=== PATIENT | female | born 1945 | race Hispanic/Latino ===

== ENCOUNTER 2019-11-28 22:59 | Inpatient (IN) ==
--- NOTE | 2019-11-28 23:27 | PROVIDER DOCUMENTATION ---
This chart was entered by Yuliya Amaya Scribe, acting as scribe for German Samson MD. HPI-General Adult - General Stated Complaint: BP ISSUES Time Seen by Provider: 11/28/19 23:17 Source: patient, family Allergies/Adverse Reactions: Patient Allergies Allergy/AdvReac Type Severity Reaction Status Date / Time Penicillins Allergy SWELLING Verified 11/28/19 23:25 Home Medications: Home Medication List Medication Instructions Recorded Confirmed Last Taken Type Alprazolam [Xanax Xr] 0.5 mg PO PRN PRN 10/27/19 11/29/19 Unknown History Aspirin [Aspir-Low] 81 mg PO DAILY 10/27/19 11/29/19 Unknown History Glipizide [Glucotrol] 10 mg PO DAILY 10/27/19 11/29/19 Unknown History Hydrochlorothiazide 25 mg PO DAILY 10/27/19 11/29/19 Unknown History Isosorbide Mononitrate [Isosorbide 30 mg PO DAILY 10/27/19 11/29/19 Unknown History Mononitrate ER] Levothyroxine Sodium 88 mcg PO DAILY 10/27/19 11/29/19 Unknown History Metformin [Glucophage] 500 mg PO BID CC 10/27/19 11/29/19 Unknown History Metoprolol Tartrate 50 mg PO DAILY 10/27/19 11/29/19 Unknown History Marble-3 Fatty Acids/Fish Oil 1 ea PO DAILY 10/27/19 11/29/19 Unknown History [Marble 3 1,000 mg Softgel] Omeprazole 40 mg PO DAILY 10/27/19 11/29/19 Unknown History - History of Present Illness -Gen Adult Nature of Presenting Problems: pt is a 74 yohf presenting w/daughter to er w/cc chest heaviness, purdy pressure like in nature, and 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 pt has hx of dm, takes glipizide, and htn, takes norvasq. pt pcp is Dr. Renee in [place]. Location of Pain/Injury: reports: head, chest Quality of Pain: reports: pressure, other (chest heaviness) Severity: reports: mild Onset/Duration: reports: 1/2 hour ago Timing: reports: still present Context/Activities at Onset: reports: none Modifying Factors: improves with: nothing Associated Symptoms: reports: chest pain, headaches, other (htn). denies: dizz iness Review of Systems - Adult - REVIEW OF SYSTEMS - ADULT Constitutional: reports: no symptoms reported. denies: fever, fatique, night sweats Eyes: reports: no symptoms reported Ears, Nose, Mouth & Throat: reports: no symptoms reported Cardiovascular: reports: see HPI, chest pain, other (HTN 185/97). denies: heart murmur, irregular heart rate, orthopnea Respiratory: reports: no symptoms reported. denies: hemoptysis, pleurisy, shortness of breath Gastrointestinal: reports: no symptoms reported. denies: diarrhea, nausea, vomiting Genitourinary: reports: no symptoms reported Musculoskeletal: reports: no symptoms reported Integumentary: reports: no symptoms reported Neurological: reports: see HPI, headache/migraines. denies: dizziness/vertigo, loss of balance, numbness Psychiatric: reports: no symptoms reported Endocrine: reports: no symptoms reported Hematologic/Lymphatic: reports: no symptoms reported Allergic/Immunologic: reports: no symptoms reported All Other Systems: Reviewed and Negative Past History - Adult - PAST MEDICAL HISTORY-ADULT Review of Records: reports: Nursing Assessment Review, Medications Reviewed, Social history reviewed & non-contributory. Major Childhood Illnesses: reports: denies history Cardiovascular: reports: HTN, hyperlipidemia Respiratory: reports: denies history Gastrointestinal: reports: denies history Obstetrical/Gynecological: reports: denies history Genitourinary: reports: denies history Musculoskeletal: reports: denies history Neurological: reports: denies history Endocrine/Immune: reports: Diabetes, thyroid disorder Other Conditions: reports: denies history - PRIOR SURGERIES/PROCEDURES Surgical/Procedure History: reports: orthopedic (extremity) - IMMUNIZATION STATUS Childhood Immunizations: See Nurse Assessment Flu Vaccine: See Nurse Assessment - FAMILY HISTORY Family History: reviewed, not pertinent - SOCIAL HISTORY Smoking: non-smoker Substance Use: none/never Physical Exam-General - PHYSICAL EXAM-ADULT Initial Vital Signs Reviewed: Yes - CONSTITUTIONAL General Appearance: appears well, alert, no apparent distress - EYES Eyes: PERRL/EOMI, pink conjunctivae - HEAD, EARS, NOSE, MOUTH & THROAT HENMT: normocephalic/atraumatic, moist mucous membranes - NECK Neck: non-tender, full range of motion, supple, normal inspection - RESPIRATORY Respiratory: chest non-tender, lungs clear, normal breath sounds - CARDIOVASCULAR Cardiovascular: normal peripheral pulses, regular rate, rhythm, no edema, no ga llop, no JVD, no murmur. negative: bradycardia, tachycardia, irregularly irregular - GASTROINTESTINAL (ABDOMEN) Abdominal Exam: normal bowel sounds, non tender, soft - MUSCULOSKELETAL Back Exam: normal inspection Extremity: normal range of motion, non-tender, normal gait, normal inspection - SKIN Integumentary: normal color, normal turgor, warm/dry - NEUROLOGIC Neurologic: brass polisher II-XII nml as tested, grossly normal, no motor/sensory deficits - PSYCHIATRIC Psych/Mental Status: normal mood/affect, normal thought content, normal thought process, oriented x 3 Progress - PLAN OF CARE/RESULTS Result Diagrams: 11/29/19 00:12 11/29/19 00:12 - CONSULTS/PCP/HOSPITALIST Notification #1 *Consult/PCP/Hospitalist*: DR. ARANA Time Discussed: 01:50 Consult Disposition: Admit Departure - Departure Date of Disposition Decision: 11/29/19 Time of Disposition Decision: 01:52 DIAGNOSIS: Chest pain Qualifiers: Chest pain type: unspecified Qualified Code(s): R07.9 - Chest pain, unspecified Diabetes Qualifiers: Diabetes mellitus type: type 2 Diabetes mellitus custodial insulin use: unspecified custodial insulin use status Diabetes mellitus complication status: without complication Qualified Code(s): E11.9 - Type 2 diabetes mellitus without complications Disposition: ADMITTED INPATIENT 09 Certified Medical Emergency: Emergent Condition: Stable Referrals and Follow-Ups: None,PCP [NON-STAFF PROVIDER] - - Critical Care Note This patient required my direct & personal management of CC.: No Attestation - Physician/ DALY Attestation Patient care was provided by Advanced Practice Provider:: No The physician spent face to face time with patient:: Yes Advanced Practice Provider documentation review:: Supervising physician onsite and consulted in the evaluation and care of this patient. The physician did have a face to face encounter with the patient. This chart was documented by the indicated scribe, (Yuliya Amaya Scribe) and accurately reflects the services I performed and decisions made by me, Mila Samson MD, as attested by the provider's signature.
[2019-11-28] MEDS ORDERED: ASPIRIN PO ONE (23:57)
[2019-11-29 00:42] LABS: INR 0.91; PROTIME 12.7 Seconds (11.0-16.0); PTT 30.5 Seconds (22.3-41.8)
[2019-11-29 00:46] LABS: BASO# 0.03 X1000 (0.0-0.2); BASO% 0.6 % (0.0-0.8); EOS% 1.9 % (0.0-10.0); HEMATOCRIT 38.8 % (37.0-47.0); HEMOGLOBIN 12.5 g/dL (12.0-16.0); IMM GRAN# 0.01 X1000 (0.0-0.04); IMM GRAN% 0.2 % (0.0-0.5); LYMPH# 1.97 X1000 (1.2-3.4); LYMPH% 37.5 % (20.5-51.1); MCH 28.4 PG (27-31); MCHC 32.2 g/dL (33-37); MCV 88.2 FL (81-99); MONO# 0.66 X1000 (0.11-0.59); MONO% 12.5 % (1.7-9.3); MPV 11.7 FL (7.4-10.4); NEUT# 2.49 X1000 (1.4-6.5); NEUT% 47.3 % (42.2-75.2); PLT 142 X1000 (130-400); RDW 13.6 % (11.5-14.5); WBC 5.26 X1000 (4.8-10.8)
[2019-11-29 00:50] LABS: AGAP 15; ALBUMIN 4.1 g/dL (3.5-5.0); ALKALINE PHOSPHATASE 224 U/L (32-104); BUN 16 mg/dL (8-22); CALCIUM 9.1 mg/dL (8.8-10.2); CHLORIDE 97 mmol/L (98-107); CK PROFILE 112 U/L (24-173); COSMO 281; CREATININE 0.5 mg/dL (0.5-0.9); ESTIMATED GFR > 60; GLUCOSE 275 mg/dL (70-104); GOT 56 U/L (10-30); GPT 48 U/L (10-36); POTASSIUM 3.5 mmol/L (3.5-5.1); SODIUM 135 mmol/L (136-145); TCO2 23 mmol/L (25-35); TOTAL PROTEIN 6.5 g/dL (6.3-8.3)
[2019-11-29] MEDS ORDERED: MORPHINE IV PRN (02:00)
[2019-11-29] MEDS ORDERED: HUMULIN R (PARKWAY) SUBQ ONE (02:03)
--- NOTE | 2019-11-29 06:21 | EKG Report ---
Test Performed on : 11/28/2019 11:33:09 PM Test Reason : cp Blood Pressure : / mmHG Vent. Rate : 070 BPM Atrial Rate : 070 BPM P-R Int : 128 ms QRS Dur : 090 ms QT Int : 402 ms P-R-T Axes : 036 014 014 degrees QTc Int : 434 ms Normal sinus rhythm. Nonspecific T wave abnormality Abnormal ECG When compared with ECG of 28-NOV-2019 23:32, (Unconfirmed) Nonspecific T wave abnormality, improved in Lateral leads Unconfirmed Result
--- NOTE | 2019-11-29 07:30 | Diag Imaging Result Doc PS360 ---
EXAM: CHEST-1 VIEW 11/29/2019 HISTORY: cp TECHNIQUE: Erect AP portable at 1242 COMMENT: There is no evidence of acute cardiac or pulmonary disease. There is an azygos lobe. There are no previous studies. IMPRESSION: No acute disease. Electronically signed by Zack Gomez 11/29/2019 7:28 AM
[2019-11-29] MEDS ORDERED: XANAX PO PRN (09:41)
[2019-11-29 10:00] LABS: HEMOGLOBIN A1C 9.1 % (4.8-6.0)
--- NOTE | 2019-11-29 10:50 | HISTORY AND PHYSICAL ---
CHIEF COMPLAINT: Chest pain. HISTORY OF PRESENTING ILLNESS: This is a 74-year-old female who presents to [facility] ER. She is unable to speak [place], so I used the contract mail carrier line to obtain her history. She states that a couple of weeks ago, she was seen at [facility] because she was having some swelling in her tongue after starting a blood pressure medicine, and she did not know the name of that medication, but it sounds like it was an GIFTY inhibitor as she was taken off that medication and told not to take it anymore due to her tongue swelling, and was started on some different medications for her blood pressure. She has been keeping a close monitor on her blood pressure and last night began having some chest heaviness and palpitations. No radiating of the pain. States that she noticed an elevation in her blood pressure, so her daughter brought her to the emergency room here for further evaluation and treatment. Her workup has shown cardiac enzymes x3 sets to be negative. Chest x-ray showed no acute disease. EKG showed a normal sinus rhythm at 70, but she was admitted for further evaluation and treatment. PAST MEDICAL HISTORY: Diabetes type 2, hypertension, hyperlipidemia, hypothyroidism, anxiety, and arthritis. PAST SURGICAL HISTORY: Cholecystectomy, hysterectomy, and a right knee surgery. FAMILY HISTORY: Reviewed and noncontributory. SOCIAL HISTORY: She lives with family. Denies any tobacco, alcohol or illicit drug use. ALLERGIES: Penicillin. HOME MEDICATIONS: We are going to hold her Glucotrol 10 mg p.o. daily and Glucophage 500 mg p.o. b.i.d. We will continue her Xanax XR 0.5 mg p.o. at bedtime p.r.n., aspirin 81 mg p.o. daily, hydrochlorothiazide 25 mg p.o. daily, Lantus SoloSTAR 75 units subcutaneous at bedtime, isosorbide 30 mg p.o. daily, levothyroxine 88 mcg p.o. daily, meloxicam 15 mg p.o. daily, metoprolol 50 mg p.o. daily, omega-3 1000 mg soft gel p.o. daily, and omeprazole 40 mg p.o. daily. LABORATORY DATA: Showed a white blood cell count of 5.26, hemoglobin 12.5, hematocrit 38.8, platelets 142,000. PT and INR of 12.7 and 0.91. Sodium of 135, potassium 3.5, chloride 97, CO2 23, BUN of 16, creatinine 0.5, glucose 275. Hemoglobin A1c of 9.1. AST of 56, ALT 48, alkaline phosphatase 224. Cardiac enzymes x3 sets were negative. Chest x-ray showed no acute disease. EKG showed normal sinus rhythm at 70. REVIEW OF SYSTEMS: She denied any fever, chills, blurred vision, dizziness. She did have a headache, chest heaviness, palpitations. Denied any radiating of symptoms. Denied any abdominal pain, constipation, diarrhea, burning or hurting with urination. PHYSICAL EXAMINATION: VITAL SIGNS: On arrival, she had a temperature of 98 degrees, pulse 73, respirations 18, blood pressure 170/86, saturating 95% on room air. GENERAL: This is a 74-year-old female who answers questions appropriately through the contract mail carrier line. HEENT: Normocephalic, atraumatic. Normal ENT inspection. Oropharynx and nares are clear. Eyes: Pupils are equal, round, and reactive to light and accommodation. Extraocular movements are intact. NECK: Normal inspection. Normal range of motion. LUNGS: Clear to auscultation bilaterally with equal lung expansion and chest wall movement. HEART: Regular rate and rhythm. No murmurs, rubs, or gallops. ABDOMEN: Soft, nontender, nondistended. Bowel sounds are present x4 quadrants. MUSCULOSKELETAL: She had 5 out of 5 strength x4 extremities. NEUROLOGICAL: The cranial nerves 2-12 appear grossly intact. ASSESSMENT: 1. Chest pain. 2. Hypertension. 3. Diabetes type 2 uncontrolled with hyperglycemia. 4. Hypothyroidism. PLAN: She was admitted to the medical unit, placed on a diabetic diet, pattern blood sugars with sliding scale insulin. We will schedule her for a myocardial perfusion scan in the a.m. We will continue her home medications as previously identified. We will check a TSH, free T4, CBC, BMP in the a.m. Further orders after seen by attending. Dictated by NATI Chang for Ken Watts MD cc: NATI Chang MD David Shupe
[2019-11-29] MEDS: LOPRESSOR PO SCH (10:52)
[2019-11-29] MEDS: IMDUR PO SCH (10:52)
[2019-11-29] MEDS: ASPIRIN EC PO SCH (10:52)
[2019-11-29] MEDS: FISH OIL CONCENTRATE PO SCH (10:52)
[2019-11-29] MEDS: MOBIC PO SCH (10:53)
[2019-11-29] MEDS: HYDROCHLOROTHIAZIDE PO SCH (10:53)
[2019-11-29] MEDS: HUMALOG SUBQ SCH ×3 (11:21→21:46)
--- NOTE | 2019-11-29 19:22 | PROGRESS NOTE ---
DATE: 11/29/2019 SUBJECTIVE: Patient has no major complaints. OBJECTIVE: Vital signs: Blood pressure is 136/65, heart rate 62, respiratory rate 20, temperature 97.7 degrees. Cardiovascular: Regular rate and rhythm. Pulmonary: Bilateral breath sounds, clear to auscultation. GI: Was soft, nontender, nondistended. Bowel sounds are positive. LABORATORIES: White count 5, hemoglobin and hematocrit 12 and 38, platelets 142,000. Glucose 275. A1c is 9.1. AST and ALT 56 and 48. PROBLEM LIST: 1. Uncontrolled blood pressure, but she has not been taking her regular medications. We will continue treatment and follow. 2. Chest pain. She is ruled out. We will continue her regular medications and monitor closely. 3. Type 2 diabetes. Encourage compliance. 4. Elevated liver enzymes. We will check hepatitis panel and right upper quadrant tomorrow and follow. This is a [id number] encounter note with Lyla Garcia. cc: Ken Watts MD
[2019-11-29] MEDS: LANTUS INSULIN SUBQ SCH (21:45)
[2019-11-30 06:25] LABS: BASO# 0.03 X1000 (0.0-0.2); BASO% 0.6 % (0.0-0.8); EOS# 0.09 X1000 (0.0-0.7); EOS% 1.7 % (0.0-10.0); HEMATOCRIT 40.7 % (37.0-47.0); HEMOGLOBIN 13.5 g/dL (12.0-16.0); LYMPH# 2.46 X1000 (1.2-3.4); LYMPH% 46.5 % (20.5-51.1); MCH 29.1 PG (27-31); MCHC 33.2 g/dL (33-37); MCV 87.7 FL (81-99); MONO# 0.48 X1000 (0.11-0.59); MONO% 9.1 % (1.7-9.3); NEUT# 2.23 X1000 (1.4-6.5); NEUT% 42.1 % (42.2-75.2); PLT 143 X1000 (130-400); RBC 4.64 XMIL (4.2-5.4); RDW 13.8 % (11.5-14.5); WBC 5.29 X1000 (4.8-10.8)
[2019-11-30 06:46] LABS: AGAP 13; ALKALINE PHOSPHATASE 118 U/L (32-104); BUN 13 mg/dL (8-22); CALCIUM 9.3 mg/dL (8.8-10.2); CHLORIDE 98 mmol/L (98-107); COSMO 277; CREATININE 0.5 mg/dL (0.5-0.9); ESTIMATED GFR > 60; GLUCOSE 161 mg/dL (70-104); GOT 62 U/L (10-30); GPT 50 U/L (10-36); POTASSIUM 3.3 mmol/L (3.5-5.1); SODIUM 137 mmol/L (136-145); TCO2 27 mmol/L (25-35); TOTAL PROTEIN 6.9 g/dL (6.3-8.3)
[2019-11-30 06:56] LABS: FREE T4 0.83 ng/dL (0.93-1.70); TSH 2.16 uIUmL (0.27-4.20)
[2019-11-30] MEDS: HUMALOG (PARKWAY) SUBQ SCH ×4 (07:33→22:08)
[2019-11-30] MEDS: PRILOSEC PO SCH (07:34)
[2019-11-30] MEDS: SYNTHROID PO SCH (07:34)
[2019-11-30] MEDS: ASPIRIN EC PO SCH (08:23)
[2019-11-30] MEDS: FISH OIL CONCENTRATE PO SCH (08:23)
[2019-11-30] MEDS: IMDUR PO SCH (08:23)
[2019-11-30] MEDS: MOBIC PO SCH (08:23)
[2019-11-30] MEDS: LOPRESSOR PO SCH (08:23)
[2019-11-30] MEDS: HYDROCHLOROTHIAZIDE PO SCH (08:23)
--- NOTE | 2019-11-30 09:47 | EKG Report ---
Test Performed on : 11/30/2019 09:42:14 AM Test Reason : STRESS TEST Blood Pressure : / mmHG Vent. Rate : 074 BPM Atrial Rate : 074 BPM P-R Int : 130 ms QRS Dur : 084 ms QT Int : 402 ms P-R-T Axes : 071 063 053 degrees QTc Int : 446 ms Normal sinus rhythm. ST & T wave abnormality, consider anterolateral ischemia Abnormal ECG When compared with ECG of 28-NOV-2019 23:33, (Unconfirmed) No significant change was found Confirmed by Nate Bell MD ([id number]) on 12/03/2019 1:47:30 AM
--- NOTE | 2019-11-30 12:56 | GRADED EXERCISE REPORT ---
DATE: 11/30/2019 PROCEDURE: Lexiscan. INDICATION: Chest pain. DESCRIPTION OF PROCEDURE IN DETAIL: Baseline EKG shows ST depression in II, III, aVF, and V 3 through V 6 with T-wave inversion. She underwent Lexiscan testing per protocol; 0.4 mg was infused or pushed. She did not develop any chest pain. She developed some headache. Her peak blood pressure was 162/80. Peak heart rate of 99. I do not think she had any significant ST depression or big changes. The test was felt to be clinically negative and electrically negative. Myocardial perfusion will be reported separately. cc: Ken Watts MD
[2019-11-30] MEDS ORDERED: LEXISCAN ONE (13:39)
--- NOTE | 2019-11-30 15:39 | Diag Imaging Result Doc PS360 ---
US GB < RUQ (LIMITED) - 11/30/2019 INDICATION: elevated liver enzymes TECHNIQUE: Lang scale, color Doppler, and duplex evaluation of the abdomen was performed. Standard protocol. COMPARISON: None FINDINGS: The liver appears heterogeneous and lobulated. There is a possible 4 cm hypoechoic mass in the left lobe.. The IVC and aorta appear normal. The pancreas contains a 5.1 x 5.8 x 2.2 cm nonspecific hypoechoic area within or adjacent to the pancreatic head. Recommend further evaluation with dynamic scanning of the abdomen. The gallbladder is surgically absent. The common bile duct measures five mm. The portal vein is patent with hepatopetal flow. The right kidney appears normal. There is no hydronephrosis. IMPRESSION: Potential masses within the pancreas and liver. Recommend further evaluation with dynamic contrasted CT scan of abdomen with IV and oral contrast. Electronically signed by Heather Crawford 11/30/2019 3:37 PM
--- NOTE | 2019-11-30 16:05 | Diag Imaging Result Document ---
PROCEDURE NAME: MYOCARDIAL PERF SCAN, STR/REST - 11/30/2019 INDICATION: A 74-year-old female with chest pain. DESCRIPTION: The patient came into the nuclear lab and received a resting injection of technetium 99 sestamibi 15.8 mCi. Multiple tomographic views of the cardiac structures were obtained at rest. Subsequently, the patient underwent infusion of Lexiscan 0.4 mg under the supervision of Dr. Watts. At peak infusion she was injected with technetium 99 sestamibi 41.3 mCi. Multiple tomographic views of the cardiac structures were obtained following the completion of the protocol. SUMMARY OF THE MYOCARDIAL PERFUSION PORTION OF THE STUDY: Poststress tomographic views of the left ventricle showed normal homogeneous distribution of radiotracer throughout the entire left ventricular myocardium. There is no evidence of any postexercise defect. The rest images show normal perfusion. Polar plots reveal the same. There is no evidence of any inducible ischemia nor myocardial scar. Gated SPECT shows normal left ventricular systolic function. Ejection fraction of 74%. Normal ventricular volumes. No wall motion abnormality. Lung/heart ratio is normal at 0.39. TID is normal at 0.71. CONCLUSION: In summary, this study shows: 1. Normal poststress myocardial perfusion scan. There is no scintigraphic evidence of pharmacologically induced myocardial ischemia. 2. Normal left ventricular systolic function. Ejection fraction of 74%. Normal ventricular volumes. No wall motion abnormality. The study represents low risk for ischemic events. cc: MD Lyla Alonso CRNP
--- NOTE | 2019-11-30 18:56 | PROGRESS NOTE ---
DATE: 11/30/2019 SUBJECTIVE: She has no major complaints. No major issues from that standpoint. OBJECTIVE: Vital signs: Blood pressure 103/62, heart rate of 74, respiratory rate of 20, temperature 97.9 degrees. ASSESSMENT: 1. Atypical chest pain. She is ruled out. Cardiac imaging is negative. This is noncardiac, and now we have an alternative diagnosis. 2. She has a liver mass and possibly a pancreatic mass, so we will progress with a CT and evaluate for other diagnoses. We will discuss findings with the family. So continue to monitor. cc: Ken Watts MD
--- NOTE | 2019-11-30 20:37 | Diag Imaging Result Doc PS360 ---
EXAM: CT ABD/PELVIS W/PO AND IV CON - 11/30/2019 HISTORY: weight loss, cachexia, dysphagia TECHNIQUE: CT abdomen/pelvis with oral and intravenous contrast COMPARISON: None. FINDINGS: The visualized lung bases appear essentially clear. There is hepatomegaly, with somewhat lobulated liver contours and prominent caudate lobe. The liver demonstrates mildly heterogeneous attenuation. There is no discrete focal liver lesion. The possibility of chronic hepatocellular disease/cirrhosis cannot be excluded. The spleen is not enlarged. There are no abnormalities of the adrenal glands or pancreas identified. The gallbladder surgically absent. The bilateral kidneys enhance homogeneously. There is no hydronephrosis. There is a nonobstructing stone in the lower right kidney. There are ill-defined inflammatory changes around the proximal inferior mesenteric artery, of uncertain significance. There is no contrast extravasation from the SAADIA identified. There is no evidence of abdominal aortic aneurysm. There are nonspecific small mesenteric lymph nodes. There are atherosclerotic calcifications noted. There are lumbar spine degenerative changes noted. There is no evidence of bowel obstruction. There is colonic diverticulosis which is most extensive along the descending and proximal sigmoid colon. There is no evidence of diverticulitis. There is no free air, free fluid, or abscess identified. There are postsurgical changes of partial hysterectomy. There is no abnormal pelvic mass or fluid collection identified. IMPRESSION: Hepatomegaly, with lobulated liver contours and mildly heterogeneous attenuation of liver. The possibility of chronic hepatocellular disease/cirrhosis cannot be excluded. There is no discrete focal liver lesion identified. Mild inflammatory changes around the proximal inferior mesenteric artery, of uncertain significance. Nonspecific small retroperitoneal lymph nodes. Atherosclerotic calcifications noted. Lumbar spine degenerative changes noted. Colonic diverticulosis. No evidence of diverticulitis. This exam was performed using automated exposure control, adjustment of mA or kV according to patient size, and/or use of iterative reconstruction technique. Electronically signed by Jeancarlos Kruger 11/30/2019 8:34 PM
[2019-11-30] MEDS: LANTUS INSULIN SUBQ SCH (22:08)
[2019-12-01 06:53] LABS: BASO# 0.03 X1000 (0.0-0.2); BASO% 0.5 % (0.0-0.8); EOS# 0.08 X1000 (0.0-0.7); EOS% 1.3 % (0.0-10.0); HEMATOCRIT 41.1 % (37.0-47.0); HEMOGLOBIN 13.6 g/dL (12.0-16.0); IMM GRAN# 0.01 X1000 (0.0-0.04); IMM GRAN% 0.2 % (0.0-0.5); LYMPH# 2.45 X1000 (1.2-3.4); MCH 28.8 PG (27-31); MCHC 33.1 g/dL (33-37); MCV 87.1 FL (81-99); MONO# 0.63 X1000 (0.11-0.59); MONO% 10.5 % (1.7-9.3); MPV 11.8 FL (7.4-10.4); NEUT# 2.78 X1000 (1.4-6.5); NEUT% 46.5 % (42.2-75.2); PLT 142 X1000 (130-400); RBC 4.72 XMIL (4.2-5.4); RDW 13.8 % (11.5-14.5); WBC 5.98 X1000 (4.8-10.8)
[2019-12-01 07:22] LABS: AGAP 12; ALBUMIN 4.2 g/dL (3.5-5.0); ALKALINE PHOSPHATASE 119 U/L (32-104); BUN 13 mg/dL (8-22); CALCIUM 9.4 mg/dL (8.8-10.2); CHLORIDE 95 mmol/L (98-107); COSMO 273; CREATININE 0.5 mg/dL (0.5-0.9); ESTIMATED GFR > 60; GLUCOSE 223 mg/dL (70-104); GOT 63 U/L (10-30); GPT 58 U/L (10-36); POTASSIUM 3.4 mmol/L (3.5-5.1); SODIUM 133 mmol/L (136-145); TCO2 25 mmol/L (25-35); TOTAL PROTEIN 7.1 g/dL (6.3-8.3)
[2019-12-01 08:11] VITALS: BP 121/79
[2019-12-01 09:40] LABS: HEPATITIS PROFILE ACUTE SEE COMMENTS
[2019-12-01] MEDS: MOBIC PO SCH (09:50)
[2019-12-01] MEDS: PRILOSEC PO SCH (09:50)
[2019-12-01] MEDS: HYDROCHLOROTHIAZIDE PO SCH (09:50)
[2019-12-01] MEDS: FISH OIL CONCENTRATE PO SCH (09:50)
[2019-12-01] MEDS: LOPRESSOR PO SCH (09:50)
[2019-12-01] MEDS: SYNTHROID PO SCH (09:50)
[2019-12-01] MEDS: IMDUR PO SCH (09:51)
[2019-12-01] MEDS: HUMALOG (PARKWAY) SUBQ SCH (09:51)
[2019-12-01] MEDS: ASPIRIN EC PO SCH (09:51)
--- NOTE | 2019-12-02 12:31 | DISCHARGE SUMMARY ---
ADMISSION DATE: 11/29/2019 DISCHARGE DATE: 12/01/2019 DIAGNOSES: 1. Atypical chest pain with a normal myocardial perfusion scan. 2. Elevated liver enzymes. DIAGNOSTICS: 1. Chest x-ray revealed no acute disease. 2. Abdominal ultrasound revealed potential masses within the pancreas and liver with a 4 cm hypoechoic mass in the left lobe. The pancreas contains a 5.1 x 5.8 x 2.2 cm nonspecific hypoechoic area within or adjacent to the pancreatic head. 3. CT of the abdomen and pelvis revealed hepatomegaly with lobulated liver contours and mildly heterogeneous attenuation of the liver. Possibility of chronic hepatocellular disease/cirrhosis cannot be excluded. There is no discrete focal liver lesion identified. Mild inflammatory changes around the proximal inferior mesenteric artery of uncertain significance with nonspecific small retroperitoneal lymph nodes. 4. Atherosclerotic calcifications with lumbar spine degenerative changes noted. Colonic diverticulosis with no evidence of diverticulitis. 5. Exercise stress test, clinically negative and electrically negative. 6. Myocardial perfusion scan. Normal post-stress myocardial perfusion scan. No scintigraphic evidence of pharmacologically induced myocardial ischemia. Normal left ventricular systolic function. Ejection fraction 74%. Normal ventricular volumes. No motion wall abnormality. HOSPITAL COURSE: Ms. Nassar presented to the emergency room complaining of chest pain. She ruled out by enzymes and EKG. Lexiscan was negative. While in the hospital, she was noted to have elevated liver function tests. She denied any history of liver disease. Therefore, a right upper quadrant ultrasound was performed which was read as potential masses within the pancreas and liver as stated above. CT of the abdomen and pelvis with p.o. and IV contrast followed and she was found to have no discrete focal liver lesion, but hepatomegaly with lobulated liver contours and mildly heterogeneous attenuation of the liver with possibility of chronic hepatocellular disease/cirrhosis could not be excluded. CEA returned at 4.5. She was found to have a hemoglobin A1c of 9.1 with blood sugars in the 130 to primarily 260 range. Scans and labs were discussed with Dr. Weiner who the patient will see December 03 at 2:15. I went in to discuss this with the patient and her 2 daughters. While there we discussed testing followup. The patient never mentioned any history. I did ask her had she been on statins at home and she stated "I was until 6 months ago when they found something wrong with my liver and they made me stop taking them." She then told myself and her daughters that she had an ultrasound, maybe a CAT scan done at [facility]. We have sent a request for release of reports for any labs, imaging over the last year. If this is sent, we will send it to Dr. Weiner's office. I did encourage the patient and her daughters to go by [facility] and see if they can get the original disks as well as reports to take to her appointment with Dr. Weiner. Dr. Weiner is aware. Of note CA 19/9 and AFP tumor markers are pending. DISCHARGE VITAL SIGNS: Blood pressure is 121/79 with a heart rate of 90, respirations 20, temperature is 97.9 degrees oral with room air saturations 95 to 98 percent. DISCHARGE PHYSICAL EXAMINATION: Cardiovascular: Regular rate and rhythm. S1 and S2 appreciated. No murmur. She has no lower extremity edema. Calves are nontender bilateral. Pulmonary: Breath sounds are clear with no increased work of breathing noted. Chest rises and falls symmetric respiration. Gastrointestinal: Abdomen is soft, nontender, nondistended with bowel sounds in all 4 quadrants. Neurologic: She is alert oriented x3. Skin is warm and dry. DISCHARGE MEDICATIONS: 1. Xanax 0.5 at bedtime p.r.n. 2. Aspirin 81 mg p.o. daily. 3. Glipizide 10 mg p.o. daily. 4. Hydrochlorothiazide 25 p.o. daily. 5. Lantus 75 units at bedtime. 6. Isosorbide mononitrate 30 mg p.o. daily. 7. Levothyroxine 88 mcg daily. 8. Meloxicam 15 mg daily. 9. Metformin 500 p.o. b.i.d. 10. Metoprolol 50 mg p.o. daily. 11. [place]-3 1 daily. 12. Omeprazole 40 p.o. daily. FOLLOWUP: 1. Dr. Weiner 12/03/2019 at 2:15 p.m. 2. Her primary care provider, Westley Renee in [place]. She needs to call in the next day or 2, update on events and schedule and follow up as he recommends. 3. She has been instructed to call to be seen sooner or return to the emergency room for any syncope, dizziness, chest pain, palpitations, any shortness of breath, cough, fever, chills, any abdominal pain, nausea, vomiting, diarrhea, black or bloody vomitus or stools or for any questions or concerns that she ma have. DISPOSITION: She is being discharged home in stable condition with family members. DISCHARGE INSTRUCTIONS: Patient was instructed to hold her metformin for 2 days, which would be the 8th and the 9th as she did have IV contrast. She and her daughter did voice understanding. CONDITION AT DISCHARGE: She is being discharged home in stable condition with family members. TIME SPENT AT DISCHARGE: This is a greater than 30 minute discharge. Dictated by NATI Gavin for Eduard Chase MD cc: NATI Gavin MD David Shupe
--- NOTE | 2019-12-02 18:17 | DISCHARGE SUMMARY ---
ADMISSION DATE: 11/29/2019 DISCHARGE DATE: 12/01/2019 ADDENDUM: Patient seen and examined by myself. Full note dictated and discussed with nurse practitioner. Patient presented to the hospital on the and was ruled out for an SD, but she did have an abnormal ultrasound, which had a questionable mass. CT, thankfully, showed a lobulated liver and no liver or pancreatic mass was noted. She does have a CEA elevated at 4.5 of undetermined significance. Discussed with her that she will need to follow up outpatient with GI to follow-up on this level. Please see full note. cc: Eduard Chase MD
== END 2019-12-01 12:00 | disposition home or self-care (01) | DRG 313 ==
LOC: P.MEDSURG 22:59 → P.ED 22:59 → OBSVTOIN 11-29 02:23 → SUATTDRO 11-29 02:23
PROVIDERS: ATTEND Family Medicine